=== PATIENT | male | born 1965 | race Caucasian/White ===

== ENCOUNTER 2016-08-31 15:36 | Emergency (ER) | payer OTHER ==
--- NOTE | ~2016-08-31 | CT71 ---
[facility] A Service [facility] RADIOLOGY TEXT RESULTS PATIENT: ROQUE DISLA LOCATION: SED : 63 UNIT #: [id number] AGE: [address]: Fabian Morgan MD SEX: M ORDER DR: [id number] [place] [id number] E MR#: [id number] Acc #: [id number] NAME: ROQUE DISLA : 1965 SEX: M STUDY DATE/TIME: 08/31/2016 16:01 UNIT: SED ROOM: STUDY DESCRIPTION: CT Head Wo Contrast Attending Physician: Fabian Morgan M.D. Ordering Physician: Fabian Morgan M.D. Primary Care Physician: Primary Care Physician No MEDICAL IMAGING REPORT This report is preliminary unless electronic signature is present. EXAM CT scan of the head without contrast, 08/31/2016 INDICATION Shaking constantly, fever and hallucinations x2 days. TECHNIQUE This CT exam was performed with one or more of the following radiation dose reduction techniques: automatic exposure control, adjustment of mA and/or kV according to patient size, and iterative reconstruction. FINDINGS Unenhanced images were obtained through the brain. The ventricles and subarachnoid space are normal. There are no masses or extraaxial fluid collections or hemorrhage. IMPRESSION Normal unenhanced head CT scan. Dictated by... Gulshan Meraz M.D. THIS IS AN ELECTRONICALLY VERIFIED REPORT Gulshan Meraz M.D. at 09/01/2016 9:22 AM RONNELL/marko TD: 09/01/2016 03:23 JOB #: [id number] [facility] A [facility] RADIOLOGY TEXT RESULTS PATIENT: ROQUE DISLA LOCATION: SED : 63 UNIT #: [id number] AGE: [address]: Fabian Morgan MD SEX: M ORDER DR: MEDICAL IMAGING REPORT
[~2016-08-31 15:36] MED LIST: ALBUTEROL17 GM INH; ALBUTEROL20 ml; ATIVAN PO; BACTRIM DS TABL1 TAB PO; FLONASE 0.05% N16 G1; MEDROL PO; NEURONTIN100 MG; SINGULAIR; [UNRECOGNIZED DRUG - OTHER]; [UNRECOGNIZED DRUG - OTHER]; [UNRECOGNIZED DRUG - OTHER]
[2016-08-31 15:41] LABS: BASOPHIL% 0.7 % (0-2.5); EOSINOPHIL% 0.6 % (0.0-7.0); HEMATOCRIT 37.8 % (38.0-50.0); HEMOGLOBIN 12.5 gm/dL (13.0-16.0); LYMPHOCYTE# 0.9 X10e3 (1.0-3.5); LYMPHOCYTE% 23.9 % (17.0-45.0); MEAN CELL VOLUME 90.8 FL (83-96); MEAN CORPUSCULAR HEMOGLOBIN 30.1 PG (28-34); MEAN CORPUSCULAR HGB CONC 33.2 g/dL (30-36); MEAN PLATELET VOLUME 7.9 FL (6.5-11.5); MONOCYTE# 0.3 X10e3 (0-1.0); MONOCYTE% 7.8 % (3.0-12.0); NEUTROPHIL# 2.6 X10e3 (1.5-7.1); RED BLOOD COUNT 4.16 X10e (3.90-5.60); RED CELL DISTRIBUTION WIDTH 14.9 % (11.0-15.5); WHITE BLOOD COUNT 3.9 X10e3 (4.0-10.5)
[2016-08-31 16:02] LABS: DIFF IND YES; PLATELET COUNT 55 X10e3 (140-420)
[2016-08-31 16:03] LABS: PLATELET ESTIMATE DECREASED (NORMAL); RBC NORMAL YES
[2016-08-31 16:05] LABS: ALBUMIN SERUM 3.8 g/dL (3.5-5.0); ALKALINE PHOSPHATASE 80 U/L (32-92); ALT (SGPT) 106 U/L (10-40); AST (SGOT) 248 U/L (10-42); BILIRUBIN, DIRECT 1.6 mg/dL (0.0-0.2); BILIRUBIN,INDIRECT 4.8 mg/dL (0.0-0.9); BILIRUBIN,TOTAL 6.4 mg/dL (0.2-2.0); BLOOD UREA NITROGEN 25 mg/dL (9-23); BUN/CREATININE RATIO 27.77; CALCIUM SERUM 9.3 mg/dL (8.4-10.2); CARBON DIOXIDE 24 mmol/L (22-31); CHLORIDE 102 mmol/L (100-111); CREATININE SERUM 0.9 mg/dL (0.6-1.4); GLOM FILT RATE Estimated ABOVE60 mL/min (>60); GLUCOSE FASTING 112 mg/dL (70-110); POTASSIUM 3.2 mmol/L (3.5-5.1); PROTEIN TOTAL SERUM 8.4 g/dL (6.0-8.3); SODIUM 136 mmol/L (135-145)
[2016-08-31 16:24] LABS: INR 1.6
[2016-08-31 16:32] LABS: PARTIAL THROMBOPLASTIN TIME 33.9 SECONDS (25.6-38.1)
[2016-08-31 16:50] LABS: URINE SOURCE CLEAN CATCH
[2016-08-31 16:52] LABS: URINE APPEARANCE CLEAR; URINE BLOOD NEG (NEG); URINE GLUCOSE NEG (NORM); URINE LEUKOCYTE ESTERASE NEG (NEG); URINE NITRATE POS (NEG); URINE PROTEIN TRACE (NEG); URINE UROBILINOGEN >=8.0 MG/DL (NORM)
[2016-08-31 16:56] LABS: URINE KETONE 2+ (NEG)
[2016-08-31 16:57] LABS: MICRO INDICATED? YES; URINE BILIRUBIN NEG (NEG); URINE COLOR ORANGE
[2016-08-31 16:59] LABS: CULTURE INDICATED? NO; URINE BACTERIA NEG (NEG); URINE RBC 0-2 /[HPF] (0-2); URINE WBC 0-2 /[HPF] (0-5)
[2016-08-31 17:04] LABS: AMPHETAMINE POS (NEG); BARBITURATES NEG (NEG); BENZODIAZEPINES NEG (NEG); COCAINE NEG (NEG); MARIJUANA NEG (NEG); OPIATES NEG (NEG); TRICYCLIC ANTIDEPRESSANTS POS (NEG); U METHADONE NEG (NEG)
== END 2016-08-31 17:47 | disposition home or self-care (01) ==
LOC: SED 15:36
PROVIDERS: Emergency Medicine
DX: M54.2 Cervicalgia (principal); F10.239 Alcohol dependence with withdrawal, unspecified; J44.9 Chronic obstructive pulmonary disease, unspecified; F17.200 Nicotine dependence, unspecified, uncomplicated; Z88.8 Allergy status to other drugs, medicaments and biological substances
CPT/HCPCS: 36415; 70450; 80048; 80076; 80307; 81003; 82140; 85025; 85610; 85730; 96361; 96374; 96375; 99284; G0480; J1885; J2060